=== PATIENT | female | born 1930 | race African-American/Black ===

== ENCOUNTER 2019-02-02 15:39 | Inpatient (IN) | payer MEDICARE ==
[~2019-02-02] VITALS: Ht 162.6 cm; Wt 61.7 kg
--- NOTE | 2019-02-02 18:20 | NUR ---
NURSE NOTES: Patient arrived on unit at 18:20. Patient is AAO x4. Patient denies chest pain. Patient is on RA and breathing even and unlabored. Patient is on heart monitor SR. BP is 157/77, 99.2 F, 88 HR, 18 Respirations, and 98% on RA. Belongings checklist done. Patient has left AC 20g SL patent, intact, and asymptomatic. patient has bruising on right arm from previous IV. Patient is able to walk from stretcher to bed. Will contact Dr. Gabriel for orders.
--- NOTE | 2019-02-02 19:50 | NUR ---
NURSE NOTES: Received report from Julio SANTO. Patient was a direct admit from [place] during day shift. patient is resting calmly in bed with family at bedside. No distress noted at this time. Orders were placed and will be followed out. Bed is in lowest position with call light within reach. Will continue to monitor and follow plan of care
[2019-02-02 20:00] VITALS: BP 133/76
--- NOTE | 2019-02-02 20:00 | NUR ---
NURSE NOTES: Spoke to Dr. Gabriel. Received orders. Endorsed to HANSA Weiss, of handoff report.
--- NOTE | 2019-02-02 20:23 | Neurology Progress Note ---
Interim History Interim History Complaints: Transfer from [facility] for TIA vs CVA Interim History MRI Brain without Contrast pending Objective Physical Exam General: well developed, well nourished, no acute distress Head: normocophalic, atraumatic Neck: no rigidity Neurologic Exam Mental Status: awake, alert, oriented x4, normal cognition, normal recent memory, normal remote memory, preserved visuospatial function Speech: normal speech, no dysarthia Language: normal language, no aphasia Cranial Nerve II: fundus normal, visual landin, no papilledema Cranial Nerves III, IV, : PERRLA, EOMI Cranial Nerve V: normal facial sensations Cranial Nerve VII: no facial asymmetry Cranial Nerve VIII: normal hearing, no nystagmus Cranial Nerve IX: normal palate elevation Cranial Nerve X: no voice hoarseness Cranial Nerve XI: SCM symmetric Cranial Nerve XII: tongue midline Motor System: normal muscle tone, strength 5/5, no involuntary movement, no muscle wasting Sensory: normal light touch, normal position sense Coordination: normal finger to nose bilaterally, normal heel to onofre bilaterally Imaging MRI Brain PENDING Impression/Recommendations Problems: (1) TIA (transient ischemic attack) Status: doing well, stable Recommendations Follow up on MRI Brain Recheck Lipids and consider adjustment of statin dose as needed. Consider CTA Brain/ MRA 12 Lead EKG TTE Q4 Neuro checks Gloria Holcomb N.P. Feb 02, 2019 20:23
--- NOTE | 2019-02-02 20:23 | Consultation ---
History of Present Illness General Date patient seen: Feb 02, 2019 Chief Complaint: TIA vs CVA for resolved episode of aphasia Present Illness HPI 88 year old female with a 5 year old reported history of DM Type 2, hyperlipidemia and TIA for aphasic episode that self resolved. She reports this occurring again a few times over the course of a few hours with some paraphrasic errors but no focal weakness, paresthesias or dysarthria. Allergies: Coded Allergies: NO KNOWN ALLERGIES (Verified Allergy, Unknown, 02/02/19) Medication History Scheduled Metformin Hcl (Metformin Hcl Er), 750 MG ORAL BID, (Reported) Pravastatin Sod (Pravastatin Sod), 40 MG ORAL BEDTIME, (Reported) Patient History History Provided By: Patient Healthcare decision maker N Resuscitation status Advanced Directive on File Review of Systems All Other Systems: negative except mentioned in HPI Physical Exam General Appearance: WD/WN, no apparent distress, alert Lines, tubes and drains: peripheral HEENT: normocephalic, atraumatic, mucous membranes moist, PERRL Extremities: normal range of motion, non-tender, normal inspection, no calf tenderness, normal capillary refill, non-pitting, no edema, no cyanosis Physical Exam Narrative Mental Status: awake, alert, oriented x4, normal cognition, normal recent memory, normal remote memory, preserved visuospatial function Speech: normal speech, no dysarthia Language: normal language, no aphasia Cranial Nerve II: fundus normal, visual landin, no papilledema Cranial Nerves III, IV, : PERRLA, EOMI Cranial Nerve V: normal facial sensations Cranial Nerve VII: no facial asymmetry Cranial Nerve VIII: normal hearing, no nystagmus Cranial Nerve IX: normal palate elevation Cranial Nerve X: no voice hoarseness Cranial Nerve XI: SCM symmetric Cranial Nerve XII: tongue midline Motor System: normal muscle tone, strength 5/5, no involuntary movement, no muscle wasting Sensory: normal light touch, normal position sense Coordination: normal finger to nose bilaterally, normal heel to onofre bilaterally Imaging MRI Brain PENDING Medications Current Medications Medications (Trade) Dose Ordered Sig/Teri Route PRN Reason Start Time Stop Time Status Last Admin Dose Admin Aspirin (ASA) 81 mg DAILY ORAL 02/03/19 09:00 03/05/19 08:59 UNV Dextrose (Dextrose 50%) 25 ml Q30M PRN IV Hypoglycemia 02/02/19 20:15 03/04/19 20:14 UNV Dextrose (Dextrose 50%) 50 ml Q30M PRN IV Hypoglycemia 02/02/19 20:15 03/04/19 20:14 UNV Heparin Sodium (Porcine) (Heparin 5000 units/ml) 5,000 units EVERY 12 HOURS SUBQ 02/02/19 21:00 03/04/19 20:59 UNV Insulin Aspart (NovoLOG) BEFORE MEALS AND HS SUBQ 02/02/19 21:00 03/04/19 20:59 UNV Assessment/Plan Problem List: (1) TIA (transient ischemic attack) ICD Codes: G45.9 - Transient cerebral ischemic attack, unspecified SNOMED: 800189776 Status: doing well, stable, tolerating diet, ambulating well Assessment/Plan Impression/Recommendations Problems: (1) TIA (transient ischemic attack) Status: doing well, stable ABCD2 score is 4 - Diabetes -Age -Length of symptoms -Aphasia Recommendations Follow up on MRI Brain Continue ASA 81mg Recheck Lipids and consider adjustment of statin dose as needed. Consider CTA Brain/ MRA 12 Lead EKG TTE recommended (outpatient if able to obtain quickly) Carotid Doppler bilaterally recommended. Q4 Neuro checks Gloria Holcomb N.P. Feb 02, 2019 20:23
[2019-02-02] MEDS ORDERED: Heparin 5000 units/ml inj SUBQ SCH (22:30)
[2019-02-02] MEDS: NovoLOG Insulin Flexpen SUBQ SCH (22:39)
[2019-02-02] MEDS ORDERED: PRAVASTATIN SOD40 M1 ORAL (23:35)
[2019-02-02] MEDS ORDERED: METFORMIN HCL750 MG ORAL (23:35)
[2019-02-03] VITALS: BP 98/50
[2019-02-03 04:00] VITALS: BP 117/62
[2019-02-03] MEDS: NovoLOG Insulin Flexpen SUBQ SCH (06:26)
[2019-02-03 07:38] LABS: ANION GAP 9 mmol/L (5-15); BLOOD UREA NITROGEN 16 mg/dL (7-18); CALCIUM 9.2 MG/DL (8.5-10.1); CARBON DIOXIDE 26 MMOL/L (21-32); CHLORIDE 107 MMOL/L (98-107); CREATININE 0.9 MG/DL (0.55-1.30); PHOSPHORUS 4.5 MG/DL (2.5-4.9); POTASSIUM 3.9 MMOL/L (3.5-5.1); SODIUM 142 MMOL/L (136-145)
[2019-02-03 07:53] LABS: BASOPHILS % (AUTO) 1.4 % (0.0-2.0); HEMOGLOBIN 11.8 G/DL (12.0-16.0); LYMPHOCYTES % (AUTO) 24.7 % (20.0-45.0); MEAN CORPUSCULAR VOLUME 96 FL (80-99); MONOCYTES % (AUTO) 11.8 % (1.0-10.0); NEUTROPHILS % (AUTO) 58.1 % (45.0-75.0); PLATELET COUNT 207 K/UL (150-450); RED BLOOD COUNT 3.67 M/UL (4.20-5.40); RED CELL DISTRIBUTION WIDTH 11.4 % (11.6-14.8); WHITE BLOOD COUNT 3.9 K/UL (4.8-10.8)
--- NOTE | 2019-02-03 07:54 | NUR ---
HAND-OFF: Report given to Mireya SANTO.
[2019-02-03 07:57] LABS: CHOLESTEROL 202 MG/DL (< 200); HDL CHOLESTEROL 82 MG/DL (40-60); TRIGLYCERIDES 74 MG/DL (30-150)
--- NOTE | 2019-02-03 08:21 | NUR ---
Concerning MRI..Refusing exam, states had MRI yesterday at [place]. HANSA Gomes has been informed. There is a simple note that states MRI done was negative. TJB 08:10
[2019-02-03] MEDS ORDERED: Heparin 5000 units/ml inj SUBQ SCH (09:00)
[2019-02-03] MEDS ORDERED: Aspirin Baby 81mg ORAL SCH (09:00)
--- NOTE | 2019-02-03 11:52 | Consultation ---
History of Present Illness General Date patient seen: Feb 03, 2019 Present Illness HPI 88 year old female with hx of DM, was taken to [facility] with CC of a few seconds of confusional state, she couldn't talk the way the wanted and she noted she talking nonsense. Her CT of heat and MRI in [place] was negative. she is admitted to [facility] for further management. Allergies: Coded Allergies: NO KNOWN ALLERGIES (Verified Allergy, Unknown, 02/02/19) Medication History Scheduled Metformin Hcl (Metformin Hcl Er), 750 MG ORAL BID, (Reported) Pravastatin Sod (Pravastatin Sod), 40 MG ORAL BEDTIME, (Reported) Patient History Healthcare decision maker N Resuscitation status Full Code Advanced Directive on File Past Medical/Surgical History Past Medical/Surgical History: (1) Prediabetes Review of Systems Eye: Reports: no symptoms Respiratory: Reports: no symptoms Cardiovascular: Reports: no symptoms Physical Exam General Appearance: WD/WN, no apparent distress Lines, tubes and drains: peripheral HEENT: normocephalic, anicteric Neck: non-tender, normal alignment, supple Respiratory/Chest: chest wall non-tender, lungs clear Cardiovascular/Chest: normal peripheral pulses, regular rhythm Abdomen: normal bowel sounds Genitourinary/Rectal: normal genital exam Extremities: normal range of motion Neurologic: control electrician II-XII grossly normal Last 24 Hour Vital Signs Date Time Temp Pulse Resp B/P (MAP) Pulse Ox O2 Delivery O2 Flow Rate FiO2 02/03/19 04:00 67 02/03/19 04:00 98.2 80 18 117/62 (80) 94 02/03/19 00:00 98.5 84 18 98/50 (66) 93 02/03/19 00:00 84 02/02/19 20:29 Room Air 02/02/19 20:00 98.0 89 18 133/76 (95) 94 02/02/19 20:00 104 Laboratory Tests Test 02/03/19 05:40 White Blood Count 3.9 K/UL (4.8-10.8) L Red Blood Count 3.67 M/UL (4.20-5.40) L Hemoglobin 11.8 G/DL (12.0-16.0) L Hematocrit 35.0 % (37.0-47.0) L Mean Corpuscular Volume 96 FL (80-99) Mean Corpuscular Hemoglobin 32.2 PG (27.0-31.0) H Mean Corpuscular Hemoglobin Concent 33.7 G/DL (32.0-36.0) Red Cell Distribution Width 11.4 % (11.6-14.8) L Platelet Count 207 K/UL (150-450) Mean Platelet Volume 5.9 FL (6.5-10.1) L Neutrophils (%) (Auto) 58.1 % (45.0-75.0) Lymphocytes (%) (Auto) 24.7 % (20.0-45.0) Monocytes (%) (Auto) 11.8 % (1.0-10.0) H Eosinophils (%) (Auto) 4.0 % (0.0-3.0) H Basophils (%) (Auto) 1.4 % (0.0-2.0) Prothrombin Time 10.2 SEC (9.30-11.50) Prothromb Time International Ratio 1.0 (0.9-1.1) Sodium Level 142 MMOL/L (136-145) Potassium Level 3.9 MMOL/L (3.5-5.1) Chloride Level 107 MMOL/L (98-107) Carbon Dioxide Level 26 MMOL/L (21-32) Anion Gap 9 mmol/L (5-15) Blood Urea Nitrogen 16 mg/dL (7-18) Creatinine 0.9 MG/DL (0.55-1.30) Estimat Glomerular Filtration Rate mL/min (>60) Glucose Level 95 MG/DL (74-106) Hemoglobin A1c 6.1 % (4.3-6.0) H Calcium Level 9.2 MG/DL (8.5-10.1) Phosphorus Level 4.5 MG/DL (2.5-4.9) Magnesium Level 1.7 MG/DL (1.8-2.4) L Triglycerides Level 74 MG/DL (30-150) Cholesterol Level 202 MG/DL (< 200) H LDL Cholesterol 104 mg/dL (<100) H HDL Cholesterol 82 MG/DL (40-60) H Cholesterol/HDL Ratio 2.5 (3.3-4.4) L Height (Feet): 5 Height (Inches): 4.00 Weight (Pounds): 136 Medications Current Medications Medications (Trade) Dose Ordered Sig/Teri Route PRN Reason Start Time Stop Time Status Last Admin Dose Admin Aspirin (ASA) 81 mg DAILY ORAL 02/03/19 09:00 03/05/19 08:59 02/03/19 09:04 Dextrose (Dextrose 50%) 25 ml Q30M PRN IV Hypoglycemia 02/02/19 20:15 03/04/19 20:14 Dextrose (Dextrose 50%) 50 ml Q30M PRN IV Hypoglycemia 02/02/19 20:15 03/04/19 20:14 Heparin Sodium (Porcine) (Heparin 5000 units/ml) 5,000 units EVERY 12 HOURS SUBQ 02/03/19 09:00 03/05/19 08:59 02/03/19 09:08 Insulin Aspart (NovoLOG) BEFORE MEALS AND HS SUBQ 02/02/19 22:30 03/04/19 22:29 02/02/19 22:39 Assessment/Plan Problem List: (1) Acute confusional state ICD Codes: F05 - Delirium due to known physiological condition SNOMED: 9236421 (2) TIA (transient ischemic attack) ICD Codes: G45.9 - Transient cerebral ischemic attack, unspecified SNOMED: 816167889 (3) Prediabetes ICD Codes: R73.03 - Prediabetes SNOMED: 788889195 Assessment/Plan telemetry recording is negative for any arrhythmias. Echo pending pt refused MRI with contrast dc if ECHO is normal. Junito Alamo MD Feb 03, 2019 11:52
--- NOTE | 2019-02-03 12:02 | Neurology Progress Note ---
Interim History Interim History ROS Limited/Unobtainable: No Complaints: Transfer from [facility] for TIA vs CVA Events: New blood results for Lipids / HgBA1c Interim History 88 year old female with a 5 year old reported history of DM Type 2, hyperlipidemia and TIA for aphasic episode that self resolved. She reports this occurring again a few times over the course of a few hours with some paraphrasic errors but no focal weakness, paresthesias or dysarthria. Objective Physical Exam Last Vital Signs Date Time Temp Pulse Resp B/P (MAP) Pulse Ox O2 Delivery O2 Flow Rate FiO2 02/03/19 04:00 67 02/03/19 04:00 98.2 18 117/62 (80) 94 02/02/19 20:29 Room Air Laboratory Tests Test 02/03/19 05:40 White Blood Count 3.9 K/UL (4.8-10.8) L Red Blood Count 3.67 M/UL (4.20-5.40) L Hemoglobin 11.8 G/DL (12.0-16.0) L Hematocrit 35.0 % (37.0-47.0) L Mean Corpuscular Volume 96 FL (80-99) Mean Corpuscular Hemoglobin 32.2 PG (27.0-31.0) H Mean Corpuscular Hemoglobin Concent 33.7 G/DL (32.0-36.0) Red Cell Distribution Width 11.4 % (11.6-14.8) L Platelet Count 207 K/UL (150-450) Mean Platelet Volume 5.9 FL (6.5-10.1) L Neutrophils (%) (Auto) 58.1 % (45.0-75.0) Lymphocytes (%) (Auto) 24.7 % (20.0-45.0) Monocytes (%) (Auto) 11.8 % (1.0-10.0) H Eosinophils (%) (Auto) 4.0 % (0.0-3.0) H Basophils (%) (Auto) 1.4 % (0.0-2.0) Prothrombin Time 10.2 SEC (9.30-11.50) Prothromb Time International Ratio 1.0 (0.9-1.1) Sodium Level 142 MMOL/L (136-145) Potassium Level 3.9 MMOL/L (3.5-5.1) Chloride Level 107 MMOL/L (98-107) Carbon Dioxide Level 26 MMOL/L (21-32) Anion Gap 9 mmol/L (5-15) Blood Urea Nitrogen 16 mg/dL (7-18) Creatinine 0.9 MG/DL (0.55-1.30) Estimat Glomerular Filtration Rate mL/min (>60) Glucose Level 95 MG/DL (74-106) Hemoglobin A1c 6.1 % (4.3-6.0) H Calcium Level 9.2 MG/DL (8.5-10.1) Phosphorus Level 4.5 MG/DL (2.5-4.9) Magnesium Level 1.7 MG/DL (1.8-2.4) L Triglycerides Level 74 MG/DL (30-150) Cholesterol Level 202 MG/DL (< 200) H LDL Cholesterol 104 mg/dL (<100) H HDL Cholesterol 82 MG/DL (40-60) H Cholesterol/HDL Ratio 2.5 (3.3-4.4) L General: well developed, well nourished, no acute distress Head: normocophalic, atraumatic Neck: no rigidity Neurologic Exam Mental Status: awake, alert, oriented x4, normal cognition, normal recent memory, normal remote memory, preserved visuospatial function Speech: normal speech, no dysarthia Language: normal language, no aphasia Cranial Nerve II: fundus normal, visual landin, no papilledema Cranial Nerves III, IV, : PERRLA, EOMI Cranial Nerve V: normal facial sensations Cranial Nerve VII: no facial asymmetry Cranial Nerve VIII: normal hearing, no nystagmus Cranial Nerve IX: normal palate elevation Cranial Nerve X: no voice hoarseness Cranial Nerve XI: SCM symmetric Cranial Nerve XII: tongue midline Motor System: normal muscle tone, strength 5/5, no involuntary movement, no muscle wasting Sensory: normal light touch, normal position sense Coordination: normal finger to nose bilaterally, normal heel to onofre bilaterally Impression/Recommendations Problems: (1) TIA (transient ischemic attack) Status: doing well, stable, tolerating diet, ambulating well Recommendations TIA with moderate risk of 2 day CVA as per ABCD2 * Follow up on MRI Brain- refused with contrast at this time- MRI without contrast is still possible - consider as outpatient * Increase Pravastatin to 80mg QD * Increase Metformin to 1000mg BID * Consider CTA Brain/ MRA as outpatient * 12 Lead EKG - normal for arrythmia * TTE- pending - for discharge if normal. * Q4 Neuro checks Gloria Holcomb N.P. Feb 03, 2019 12:02
--- NOTE | 2019-02-03 12:19 | NUR ---
CASE MANAGEMENT:REVIEW 88 YR OLD FEMALE TRANSFERRED FROM [facility] CC: APHASIC EPISODE SI: TIA 98.0 89 104 18 133/76 94% ON RA H/H-11.8/35.0 MAG-1.7 IS: ASA PO QD HEPARIN SQ Q12 SS INSULIN AC+HS : TELEMETRY STATUS PLAN: MRI BRAIN PT EVAL CAROTID DUPLEX 2DECHO INTERQUAL
[2019-02-03] MEDS ORDERED: metFORMIN 500mg tab ORAL SCH (18:00)
--- NOTE | 2019-02-03 18:20 | NUR ---
patient discharged to home. DC instructions given. Patient and acknowledge understanding. Meds from Pharmacy returned. patient turned in records request slip. request in chart.
--- NOTE | 2019-02-04 09:33 | Diagnostic Imaging Report ---
APPROVED REPORT CPT Code: 17474 Vascular Symptoms CVA/TIA: Doppler Spectral Velocity Analysis RightLeft RIGHT SIDE: CAROTID- Imaging reveals no significant plaque within the right and left extracranial carotid arteries. The Doppler spectral flow analysis is within normal limits throughout the extracranial carotid arteries bilaterally. VERTEBRAL/SUBCLAVIAN- The vertebral and subclavian arteries are within normal limits. LEFT SIDE: CCA/BULB - Imaging reveals irregular, minimal plaque in both carotid bulbs. arteries. The Doppler spectral flow analysis is within normal limits throughout the internal and external carotid arteries.
--- NOTE | 2019-02-04 09:33 | Cardiology Report ---
APPROVED REPORT EXAM: Two-dimensional and M-mode echocardiogram with Doppler and color Doppler. INDICATION Chest Pain M-Mode DIMENSIONS IVSd0.9 (0.7-1.1cm)Left Atrium (MM)2.6 (1.6-4.0cm) LVDd5.4 (3.5-5.6cm)Aortic Root3.1 (2.0-3.7cm) PWd0.6 (0.7-1.1cm)Aortic Cusp Exc.1.5 (1.5-2.0cm) IVSs1.0 cm LVDs3.9 (2.5-4.0cm) PWs0.9 cm Normal left ventricular chamber size, systolic function and wall motion. Left ventricular ejection fraction estimated to be 55-60 %. No evidence of left ventricular hypertrophy. Anterior Echo-free space, may be due to pericardial fat or effusion. All other cardiac chamber sizes are within normal limits. Mild aortic valve sclerosis with adequate cusp excursion. Thickened mitral valve leaflets with normal excursion. Mitral annulus and aortic root calcification. Pulmonic valve not well visualized. Normal tricuspid valve structure. IVC at normal size with physiologic collapse. A color flow and spectral Doppler study was performed and revealed: No aortic regurgitation. Moderate mitral regurgitation. Mitral diastolic velocities suggest reduced left ventricular relaxation c/w mild LV diastolic dysfunction (Grade I ). Mild tricuspid regurgitation. Tricuspid systolic velocities suggests peak right ventricular systolic pressure of 41 mmHg,consistent with mild pulmonary hypertension .
--- NOTE | 2019-02-04 10:26 | Discharge Summary ---
Discharge Summary Discharge Summary _ DATE OF ADMISSION: 02/02/2019 DATE OF DISCHARGE: 02/03/2019 ADMITTING MD: Dr. Sanjiv Gabriel DISCHARGED BY: Dr. Junito Alamo CONSULTANTS: Dr. Junito Paige [facility] COURSE: Patient is an 88-year-old female, history of diabetes mellitus, and hyperlipidemia who initially presented to [facility] for complaints of confusion. She could not talk the way she wanted and was noted to be talking nonsense. She had an episode of aphasia that self resolved. She reported symptoms occurred again few times over the course of a few hours with some paraphasic errors. There was no focal weakness, paresthesia or dysarthria. Head CT and MRI done at [place] was negative. She was transferred to [facility] for further evaluation and management of encephalopathy/acute confusional state, possible TIA and prediabetes. She underwent neuro evaluation. Neuro exam was negative. She was placed on neuro check every 4 hours. Globin A1c 6.1. Lipid panel showed cholesterol of 200, LDL 104, HDL 82. She was ordered a brain, however patient refused. Echocardiogram showed ejection fraction 55-60%. Right ventricular systolic pressure 41 mmHg, consistent with mild pulmonary hypertension. Carotid duplex showed irregular, minimal plaque in both right and left carotid bulb. Blood glucose was monitored. She was placed on insulin sliding scale. She was continued on metformin 1000 mg twice daily. She was given aspirin and pravastatin 80 mg nightly. Telemetry recording was negative for any arrhythmias. She refused to have MRI/ MRA done. She was recommended to have MRI without contrast as outpatient. Due to unexpected resolution of patients symptoms, patient was discharged home. FINAL DIAGNOSES: TIA Acute confusional state/encephalopathy Prediabetes DISPOSITION: Patient was discharged home. DISCHARGE MEDICATIONS: Refer to Discharge Medication List. DISCHARGE INSTRUCTIONS: Follow-up in a week. I have been assigned to complete a discharge summary on this account, I was not involved with the patient's management. Yesika Handy NP Feb 04, 2019 10:26
--- NOTE | 2019-02-04 13:13 | History and Physical Report ---
DATE OF ADMISSION: 02/02/2019 CHIEF COMPLAINT: This is an 88-year-old white female who presents with a chief complaint of "TIA." HISTORY OF PRESENT ILLNESS: The patient has a history of transient ischemic attack approximately 5 years ago. The patient initially presented to [facility] emergency room after suffering acute confusion and dysarthria. The patient was unable to find the words. The patient had an MRI and CAT scan of the brain at [facility]. Both were reported as no intracranial abnormalities. The patient was transferred to [facility] for insurance purposes. The patient was admitted with chief complaint of dysarthria and altered mental status to rule out acute cerebrovascular accident. REVIEW OF SYSTEMS: CONSTITUTIONAL: The patient denies weight loss or weight gain. The patient denies fevers or chills. HEENT: The patient denies ear or throat pain. The patient denies headache. CARDIOVASCULAR: The patient denies palpitations or chest pain. CHEST: The patient denies wheeze or shortness of breath. ABDOMINAL: The patient denies nausea, vomiting, diarrhea, or constipation. GENITOURINARY: The patient denies dysuria or increased frequency of urination. NEUROMUSCULAR: The patient complains of dysarthria and altered mental status as above. The patient denies seizures or generalized weakness. PAST MEDICAL HISTORY: Significant for: 1. Type 2 diabetes. 2. Hypercholesterolemia. PAST SURGICAL HISTORY: Significant for: 1. Bilateral hip replacement in 2005. 2. Revision of bilateral hip replacement in 2016. CURRENT MEDICATIONS: 1. Metformin 750 mg 1 tablet p.o. twice daily. 2. Pravastatin 40 mg p.o. at bedtime. ALLERGIES: No known drug allergies. SOCIAL HISTORY: The patient is and her is at the bedside. The patient denies tobacco use. The patient has alcohol use of 1 glass of wine daily. PHYSICAL EXAMINATION: VITAL SIGNS: Temperature 98.7, respirations 15, pulse 67 to 88, blood pressure 134 to 163 over 76 to 77. GENERAL: The patient is a well-developed and well-nourished white female, in no apparent distress. HEENT: Eyes, pupils equal and responsive to light and accommodation. Extraocular movements are intact. NECK: Supple without lymphadenopathy. CHEST: Lungs are clear to auscultation bilaterally without wheezes or rales. CARDIOVASCULAR: Regular rhythm and rate. S1 and S2 are normal without murmurs, rubs, or gallops. ABDOMEN: Soft, nontender, nondistended. Positive bowel sounds. No evidence of hepatosplenomegaly. Currently, no rebound or guarding noted. EXTREMITIES: Negative for clubbing, cyanosis, or edema. RECTAL/GENITAL: Refused. NEUROLOGIC: Cranial nerves II through XII are grossly intact without focal deficits. Motor strength is 5/5 bilaterally. Deep tendon reflexes are 2+ plantar. LABORATORY STUDIES: WBC 3.9, hemoglobin 13.3, hematocrit 38.4, platelets 228,000. Sodium 138, potassium 4.1, chloride 102, CO2 24, creatinine 0.92, BUN 12, glucose 108. A CT of the brain was reported as no intracranial abnormality from [place]. An MRI of the brain from [place] was reported as no intracranial abnormality. ASSESSMENT: This is an 88-year-old white female. 1. Altered mental status. 2. Dysarthria. 3. Diabetes type 2. 4. Hypercholesterolemia. 5. Cerebrovascular disease. TREATMENT: 1. Altered mental status/dysarthria. These symptoms have now resolved. The patient may have indeed had a transient ischemic attack as she has had transient ischemic attack in the past. Carotid duplex Dopplers are pending. The MRI and CAT scan from [place] were both reported as no intracranial abnormality. We will follow recommendation of Neurology. 2. Diabetes type 2. Continue metformin as above. A NovoLog sliding scale has been instituted. 3. Hypercholesterolemia. Continue Pravachol as above. 4. History of cerebrovascular disease, status post transient ischemic attack. Stevan Malcolm M.D. DR: JESSICA JOB#: [id number] CC:
== END 2019-02-03 16:30 | disposition home or self-care (01) | DRG 69 ==
LOC: 2E 17:56
DX: G45.9 Transient cerebral ischemic attack, unspecified (principal); R47.01 Aphasia; G93.40 Encephalopathy, unspecified; E78.5 Hyperlipidemia, unspecified; R73.03 Prediabetes; Z96.643 Presence of artificial hip joint, bilateral; R47.1 Dysarthria and anarthria; Z86.73 Personal history of transient ischemic attack (TIA), and cerebral infarction without residual deficits
CPT/HCPCS: 36415; 80048; 80061; 82962; 83036; 83735; 84100; 85025; 85610; 93306; 93880; J1815